=== PATIENT | female | born 1980 | race Caucasian/White ===

== ENCOUNTER 2017-11-25 13:44 | Emergency (ER) | payer OTHER ==
[~2017-11-25] VITALS: Ht 165.1 cm; Wt 47.4 kg
[~2017-11-25 13:44] MED LIST: AMOX1TAB64 PO
[2017-11-25] MEDS ORDERED: morphine SULFATE 10 MG/ML, 1ML IVPush ONE (15:30)
[2017-11-25] MEDS ORDERED: DIPHENHYDRAMINE 50 MG/ML, 1ML IVPush ONE (15:30)
[2017-11-25] MEDS ORDERED: HYDROcodone/APAP 5/325 TABLET ONE (15:37)
[2017-11-25 15:51] LABS: BASOPHILS # (AUTO) 0.04 x10^3/uL (0-0.1); BASOPHILS % (AUTO) 1 % (0-1); EOSINOPHILS # (AUTO) 0.01 x10^3/uL (0-0.4); EOSINOPHILS % (AUTO) 0 % (1-7); LYMPHOCYTES # (AUTO) 1.59 x10^3/uL (1-3.4); LYMPHOCYTES % (AUTO) 28 % (22-44); MD NO; MEAN CORPUSCULAR HEMOGLOBIN 28.7 pg (27.0-34.8); MEAN CORPUSCULAR HGB CONC 33.2 g/dL (32.4-35.8); MEAN CORPUSCULAR VOLUME 86.4 fL (80-100); MEAN PLATELET VOLUME 7.1 fL (7.4-10.4); MONOCYTES # (AUTO) 0.34 x10^3/uL (0.2-0.8); MONOCYTES % (AUTO) 6 % (2-9); NEUTROPHILS % (AUTO) 65 % (42-75); PLATELET COUNT 347 x10^3/uL (130-400); RED BLOOD COUNT 4.75 x10^6/uL (3.82-5.3); RED CELL DISTRIBUTION WIDTH 13.1 % (9.6-15.2)
[2017-11-25] MEDS ORDERED: HYDR-3240 PO (15:55)
[2017-11-25 15:58] LABS: INTERNATIONAL NORMALIZED RATIO 0.97 (0.93-1.1); PROTHROMBIN TIME 10.1 Seconds (9.6-11.5)
[2017-11-25] MEDS ORDERED: HYDROcodone/APAP 5/325 TABLET PO ONE (16:00)
[2017-11-25 16:02] LABS: ALANINE AMINOTRANSFERASE 17 U/L (12-78); ALBUMIN 3.8 g/dL (3.4-5.0); ANION GAP 6 mmol/L (5-15); CALCIUM 8.9 mg/dL (8.5-10.1); CHLORIDE 107 mmol/L (98-107); CREATININE 0.78 mg/dL (0.55-1.02)
[2017-11-25 16:04] LABS: ALKALINE PHOSPHATASE 47 U/L (45-117); BILIRUBIN,TOTAL 0.3 mg/dL (0.2-1.0); TOTAL PROTEIN 6.7 g/dL (6.4-8.2)
[2017-11-25 18:50] VITALS: BP 116/74
== END 2017-11-25 18:52 | disposition home or self-care (01) ==
LOC: ED 17:00
DX: M25.561 Pain in right knee (principal); M79.671 Pain in right foot; M79.661 Pain in right lower leg
CPT/HCPCS: 36415; 80053; 85025; 85610; 85730; 93922; 99285

== ENCOUNTER 2018-08-02 07:29 | Day surgery (SDC) | payer OTHER ==
[~2018-08-02] VITALS: Ht 165.1 cm; Wt 49.3 kg
[~2018-08-02 07:29] MED LIST changes: +HYDR-3240 PO
[2018-08-02 08:11] VITALS: BP 101/66
[2018-08-02] MEDS ORDERED: SODIUM CHLORIDE 0.9% 1,000 ML IV SCH (08:14)
[2018-08-02] MEDS ORDERED: MIDAZOLAM 1 MG/ML, 5ML ONE (08:49)
[2018-08-02] MEDS ORDERED: FENTANYL PF 100 MCG/2ML ONE ×2 (08:49)
[2018-08-02] MEDS ORDERED: NALOXONE 1 MG/ML, 2ML ONE (08:49)
[2018-08-02] MEDS ORDERED: FLUMAZENIL 0.1 MG/1 ML, 5ML ONE (08:49)
[2018-08-02] MEDS ORDERED: LIDOCAINE-MPF 1%, 5ML ONE (08:53)
== END 2018-08-02 12:50 | disposition home or self-care (01) ==
LOC: OUT 07:29
PROVIDERS: ATTEND Nurse Practitioner
DX: M24.10 Other articular cartilage disorders, unspecified site (principal); Z85.820 Personal history of malignant melanoma of skin
CPT/HCPCS: 20225; 77012; 88307; 88311; 88333; 99156; 99157; J2250; J3010; 20220; J2310